=== PATIENT | male | born 1960 | race Caucasian/White ===

== ENCOUNTER 2024-10-18 16:09 | Outpatient (CLI) | payer BC, SELFPAY ==
--- NOTE | ~2024-10-18 | XR_ITS ---
3 VIEWS LUMBAR SPINE Ordering provider: Debbie Monsivais NP History: . M54.16 - Radiculopathy, lumbar region . Comparison: None. FINDINGS: VERTEBRAL BODIES: No visible fracture or subluxation. Degenerative changes of the spine. DISK SPACES: Narrowing of the disc L4 L5. SOFT TISSUES: Normal. Bilateral sacroiliitis. IMPRESSION: No acute osseous abnormality lumbar spine. Degenerative disc disease at the level of L4-L5. Reviewed, dictated and finalized at location A.
== END 2024-10-18 16:10 | disposition home or self-care (01) ==
LOC: GOSHIMG 16:10
PROVIDERS: PCP Internal Medicine; Visit Provider Nurse Practitioner
DX: M54.16 Radiculopathy, lumbar region (principal); M51.369 Other intervertebral disc degeneration, lumbar region without mention of lumbar back pain or lower extremity pain
CPT/HCPCS: 72110